=== PATIENT | female | born 1985 | race Caucasian/White ===

== ENCOUNTER 2023-02-05 09:55 | Emergency (ER) | payer MEDICAID ==
[~2023-02-05] VITALS: Ht 165.1 cm; Wt 61.2 kg
[2023-02-05] MEDS ORDERED: LEVO500T90 PO (10:06)
[2023-02-05] MEDS ORDERED: IV NORMAL SALINE 1000 ML BAG IV ONE (10:15)
--- NOTE | 2023-02-05 10:30 | NUR ---
seen and examined by
[2023-02-05 10:45] LABS: HEMATOCRIT 36.5 % (31.2-41.9); MEAN CORPUSCULAR HEMOGLOBIN 30.6 uug (24.7-32.8); MEAN CORPUSCULAR VOLUME 91.5 fL (75.5-95.3); PLATELET COUNT (AUTO) 162 K/uL (179-408)
[2023-02-05 10:46] LABS: BILIRUBIN,DIRECT 0.1 mg/dL (0.0-0.2); BILIRUBIN,TOTAL 0.5 mg/dL (0.2-1.0); CREATININE 0.7 mg/dL (0.6-1.3); POTASSIUM 4.1 mmol/L (3.5-5.1); TOTAL PROTEIN, SERUM 7.3 g/dL (6.4-8.2)
[2023-02-05 10:59] LABS: *BILIRUBIN,URIN NEGATIVE (NEGATIVE); *CLARITY,URINE SLIGHTLY CLOUDY (CLEAR); *COLOR,URINE YELLOW (YELLOW); *KETONES,URINE NEGATIVE (NEGATIVE); *UROBILINOGEN,URINE 0.2 E.U./dl (NORMAL); LEUKOCYTE ESTERASE ,URINE TRACE (NEGATIVE); NITRITE, URINE NEGATIVE (NEGATIVE); PH,URINE 6.5 (5.0-8.0); UGLUCOSE NEGATIVE (NEGATIVE)
[2023-02-05 11:02] LABS: *URINE HCG, QUAL NEGATIVE (NEGATIVE)
[2023-02-05 11:03] LABS: *BLOOD, URINE TRACE (NEGATIVE)
[2023-02-05] MEDS ORDERED: NITR100C6 PO (11:33)
--- NOTE | 2023-02-05 11:47 | NUR ---
Patient discharged to home in stable condition. Written and verbal after care instructions given. Patient verbalizes understanding of instructions. Stressed follow up or return to ER for worsening s/s.
[2023-02-05 11:48] VITALS: BP 120/75
[2023-02-05 13:23] LABS: SQUAMOUS EPITHELIAL CELL,UR MANY /HPF (NONE SEEN)
[2023-02-05 13:25] LABS: MUCUS,URINE MODERATE /LPF (0-FEW)
== END 2023-02-05 11:48 | disposition home or self-care (01) ==
LOC: ER 09:55
DX: N39.0 Urinary tract infection, site not specified (principal); R31.9 Hematuria, unspecified; R07.89 Other chest pain; R10.30 Lower abdominal pain, unspecified; Z79.2 Long term (current) use of antibiotics
CPT/HCPCS: 99284; 96360; 80076; 80048; 81001; 84703; 83690; 85025; 36415; 93005; 87040; J7040; A4663